=== PATIENT | male | born 1945 | race Caucasian/White ===

== ENCOUNTER → 2018-10-03 | Outpatient (CLI) | payer MEDICARE, OTHER | LOC: LAB 15:58 → LAB SHORT 15:58 | DX: J34.0 Abscess, furuncle and carbuncle of nose (principal) | CPT/HCPCS: 87070; 87077; 87147; 87186 ==

== ENCOUNTER → 2024-06-05 | Outpatient (CLI) | payer MEDICARE ==
[2024-06-05 15:51] LABS: Creatinine, Urine Random 46.4 mg/dL (27.00-270.00); Microalb/Creat Ratio UR, Rand 13.642 mg/g (0.000-30.000); Microalbumin, Random Urine 6.33 mg/L (0.000-20.000)
== END ==
LOC: LAB 11:54 → LAB SHORT 11:54
PROVIDERS: Hospitalist
DX: I10 Essential (primary) hypertension (principal)
CPT/HCPCS: 82043; 82570